=== PATIENT | female | born 1970 | race Caucasian/White ===

== ENCOUNTER 2021-10-31 14:39 | Outpatient (CLI) | payer OTHER, SELFPAY ==
[2021-10-31 16:19] LABS: Chloride* 104 mmol/L (96-114); Potassium* 4.1 mmol/L (3.6-5.1); Sodium* 136 mmol/L (135-149)
[2021-10-31 16:22] LABS: Blood Urea Nitrogen* 9 mg/dL (7-30); Carbon Dioxide* 26 mmol/L (20-32); Creatinine* 0.7 mg/dL (0.5-1.5); Estimated Glomerular Filt Rate 105 ml/min; Glucose* 107 mg/dL (60-115)
== END 2021-10-31 14:40 | disposition home or self-care (01) ==
LOC: NFLDREF 14:40
PROVIDERS: PCP Family Medicine; Visit Provider Internal Medicine
DX: Z01.818 Encounter for other preprocedural examination (principal)
CPT/HCPCS: 80048

== ENCOUNTER 2021-11-04 08:35 | Day surgery (SDC) | payer OTHER, SELFPAY ==
[2021-11-04] VITALS (11 sets, daily range): BP systolic 129–149; BP diastolic 66–88; PULSE 70–92; RESP 16–20; TEMP 36.2–36.8; O2SAT 96–100; BMI 36.2
[2021-11-04] MEDS: SODIUM CHLORIDE 0.9 % (FLUSH) 10 ML SYRINGE IVF (09:10)
[2021-11-04] MEDS: LACTATED RINGERS 1000 ML 1,000 ML 100 ML IV (09:10)
--- NOTE | 2021-11-04 10:47 | P.ENTPROC_ITS ---
Procedure Note Date of procedure: 11/04/21 Procedure: Preoperative diagnosis Mass left inferior tonsil pole Postoperative diagnosis same Procedure biopsy left inferior tonsil pole Under general endotracheal anesthesia patient was prepped and draped in usual fashion. Note patient has an extremely difficult airway with very limited mouth opening. Intubation was difficult as was the procedure. The McIvor mouth gag was inserted the tongue retracted forward. I was able to visualize the protruding area that appeared to be left lower tonsil tissue. Several biopsies were taken with upbiting forceps. Bleeding was controlled with suction cautery and Coblation. The patient tolerated procedure well was ex tubated in the operating room taken recovery in satisfactory condition. Blood loss less than 20 mL. Complications none. Surgeon: Josse Palencia MD
--- NOTE | 2021-11-04 11:06 | W.ANESCHARGE ---
Anesthesia Charges Start Date/Time Anesthesia Start Date: 11/04/21 Anesthesia Start Time: 10:20 Stop Date/Time Anesthesia Stop Date: 11/04/21 Anesthesia Stop Time: 11:00 Summary Emergency: No
--- NOTE | 2021-11-04 11:37 | W.ANESCHARGE ---
Anesthesia Charges Start Date/Time Anesthesia Start Date: 11/04/21 Anesthesia Start Time: 10:20 Stop Date/Time Anesthesia Stop Date: 11/04/21 Anesthesia Stop Time: 11:00 Summary Emergency: No
[2021-11-04] MEDS: ACETAMINOPHEN SUSPENSION 1 BOTTLE 320 MG PO (11:56)
[2021-11-04] MEDS: LACTATED RINGERS 1000 ML 1,000 ML 35 ML IV (12:43)
--- NOTE | 2021-11-04 12:46 | SUR.PHASEII ---
PT UNDERSTANDS D/C INSTRUCTIONS CATHETER INTACT
== END 2021-11-04 12:35 | disposition home or self-care (01) ==
PROVIDERS: PCP Family Medicine; Visit Provider Otolaryngology
PROC: (CPT 42800; principal; 2021-11-04 10:00)
DX: J35.1 Hypertrophy of tonsils (principal); J35.9 Chronic disease of tonsils and adenoids, unspecified
CPT/HCPCS: 42800; 00170; 88305; J0330; J1100; J2405; J2704; J3010; J7120